=== PATIENT | female | born 1970 | race Caucasian/White ===

== ENCOUNTER 2017-08-02 12:05 | Emergency (ER) | payer MEDICAID ==
[2017-08-02 12:06] VITALS: BMI 43.4
[2017-08-02 12:09] VITALS: BP 141/94; PULSE 112; RESP 20; TEMP 98.7; O2SAT 98
--- NOTE | 2017-08-02 12:26 | C.PDOC ---
History Of Present Illness 47 year old female presents to Emergency Department for evaluation of intermittent suprapubic abdominal pain for the past 3 weeks. Patient reports being seen by her PCP, Dr. Faye, 2 weeks ago with similar complaints, was found to have bladder infection and was given unknown antibiotics. Patient states that she finished the course of her antibiotics and felt better for 2 days but the pain returned. Patient reports being seen by OBGYN on July 31, 2017 for similar complaints in addition to irregular vaginal bleeding for almost a month. Notes that vaginal bleeding was persistent for 1 week at that time which prompted her to visit her OBGYN. Patient was prescribed hormone medication, bleeding had resolved but she continues to feel pressure in the suprapubic region. Patient was told that her urine appeared to be cloudy at that time, no antibiotics were given. Patient has a Rx with her that states need medical clearance for D&C. Patient has copy of bloodwork including CBC, CMP, lipid and thyroid panel with normal results. Denies fever, flank pain, chills, nausea, or vomiting. 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 PCP: Dr Gypsy Faye Time Seen by Provider: 08/02/17 12:16 Chief Complaint (Nursing): Female Genitourinary History Per: Patient History/Exam Limitations: no limitations Onset/Duration Of Symptoms: Days Current Symptoms Are (Timing): Still Present Quality Of Discomfort: Pressure Recent travel outside of the [place]: No Additional History Per: Patient Past Medical History Reviewed: Historical Data, Nursing Documentation, Vital Signs Vital Signs: Last Vital Signs Temp 98.7 F 08/02/17 12:07 Pulse 112 H 08/02/17 12:07 Resp 20 08/02/17 12:07 BP 141/94 H 08/02/17 12:07 Pulse Ox 98 08/02/17 13:36 - Medical History PMH: Gastritis Surgical History: (x2) - [facility] Procedures ENDO EXCISION/DEST OF LESION OR TISSUE OF STOMACH (04/01/14) Family History: States: Unknown Family Hx - Social History Hx Tobacco Use: No Hx Alcohol Use: No Hx Substance Use: No - Immunization History Hx Tetanus Toxoid Vaccination: Yes Hx Influenza Vaccination: Yes Hx Pneumococcal Vaccination: No Review Of Systems Constitutional: Negative for: Fever, Chills Respiratory: Negative for: Cough, Shortness of Breath Gastrointestinal: Positive for: Abdominal Pain. Negative for: Nausea, Vomiting , Diarrhea Genitourinary: Positive for: Frequency. Negative for: Dysuria, Hematuria, Vaginal Discharge, Vaginal Bleeding Musculoskeletal: Negative for: Back Pain Neurological: Negative for: Headache Physical Exam - Physical Exam Appears: Non-toxic, No Acute Distress, Other (obese) Skin: Normal Color, Warm, Dry Head: Atraumatic, Normacephalic Eye(s): bilateral: Normal Inspection, EOMI Oral Mucosa: Moist Neck: Supple Cardiovascular: Rhythm Regular, No Murmur Respiratory: Normal Breath Sounds, No Rales, No Rhonchi, No Wheezing Gastrointestinal/Abdominal: Soft, Tenderness (mild suprapubic), No Distention, No Guarding, No Rebound Back: Normal Inspection, No CVA Tenderness Extremity: Normal ROM Neurological/Psych: Oriented x3, Normal Speech ED Course And Treatment O2 Sat by Pulse Oximetry: 98 Pulse Ox Interpretation: Normal Medical Decision Making Medical Decision Making: Plan: * Urinalysis * Pyridium UA shows LE, Blood, WBCs. Will treat with Cipro PO. Explained results to patient and give Rx for Cipro, pyridium and florastor. Patient advised to follow up with her PCP for further care and the medical clearance for the hysteroscopy Disposition Counseled Patient/Family Regarding: Diagnosis, Need For Followup, Rx Given - Disposition Referrals: Gypsy Faye MD [Medical Doctor] - Disposition: HOME/ ROUTINE Disposition Time: 13:35 Condition: STABLE Additional Instructions: Take antibiotic twice daily and be sure to finish taking all of antibiotic. Drink plenty of fluids. If urine culture was performed, call back for results in 2-3 days for results to confirm antibiotic is treating UTI well. You may call [facility] for any assistance [phone]. 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 - Scribe Statement The provider has reviewed the documentation as recorded by the Scribe Kripal Ramos All medical record entries made by the Bobby were at my direction and personally dictated by me. I have reviewed the chart and agree that the record accurately reflects my personal performance of the history, physical exam, medical decision making, and the department course for this patient. I have also personally directed, reviewed, and agree with the discharge instructions and disposition.
[2017-08-02 12:42] LABS: RBC URINE 47 /hpf (0-3); URINE BACTERIA RARE (<OCC); URINE BILIRUBIN NEGATIVE (NEGATIVE); URINE BLOOD 3+ (NEGATIVE); URINE COLOR Yellow (YELLOW); URINE GLUCOSE (UA) NORMAL (Normal); URINE KETONE NEGATIVE (NEGATIVE); URINE LEUKOCYTE ESTERASE 3+ Leu/uL (Negative); URINE PROTEIN NEGATIVE (NEGATIVE); URINE UROBILINOGEN NORMAL mg/dL (0.2-1.0); WBC URINE 15 /hpf (0-5)
== END 2017-08-02 14:12 | disposition home or self-care (01) ==
LOC: C.ER 12:05
DX: N39.0 Urinary tract infection, site not specified (principal)

== ENCOUNTER 2017-08-04 11:52 | Emergency (ER) | payer MEDICAID ==
[2017-08-04 11:57] VITALS: BMI 42.0
--- NOTE | 2017-08-04 12:07 | C.PDOC ---
History Of Present Illness 47 y/o female presents to ED for evaluation of shortness of breath since last night. Also complaints of mild headache. Pt was recently seen in ED on 08/02/17 for UTI, given Cipro, and states her UTI symptoms are improving. Denies chest pain, fever, or other complaints. Denies history of anxiety. Pt thinks that sob might be related to cipro. Time Seen by Provider: 08/04/17 12:01 Chief Complaint (Nursing): Shortness Of Breath History Per: Patient History/Exam Limitations: no limitations Onset/Duration Of Symptoms: Days Current Symptoms Are (Timing): Still Present Current Respiratory Medications: See Home Med List Associated Symptoms: denies: Fever, Chills, Sweating, Chest Pain, Bloody Cough, Productive Cough, Heart Racing, Leg/Calf Pain, Ankle/Leg Swelling, Dizziness, Light-headedness, Anxiety, Tingling In Hands Or Face, Musle Spasms In Hands Or Feet Reports Recently: Seen In ED Recent travel outside of the [place]: No Additional History Per: Patient Past Medical History Reviewed: Historical Data, Nursing Documentation, Vital Signs Vital Signs: Last Vital Signs Temp 98.1 F 08/04/17 17:08 Pulse 110 H 08/04/17 17:08 Resp 18 08/04/17 17:08 BP 146/92 H 08/04/17 17:08 Pulse Ox 99 08/04/17 17:26 - Medical History PMH: Gastritis Surgical History: (x2) - [facility] Procedures ENDO EXCISION/DEST OF LESION OR TISSUE OF STOMACH (04/01/14) Family History: States: Unknown Family Hx - Social History Hx Tobacco Use: No Hx Alcohol Use: No Hx Substance Use: No - Immunization History Hx Tetanus Toxoid Vaccination: Yes Hx Influenza Vaccination: Yes Hx Pneumococcal Vaccination: No Review Of Systems Except As Marked, All Systems Reviewed And Found Negative. Constitutional: Negative for: Fever, Chills Cardiovascular: Negative for: Chest Pain, Palpitations, Light Headedness Respiratory: Positive for: Shortness of Breath. Negative for: Cough Neurological: Positive for: Headache. Negative for: Weakness, Numbness, Dizziness Physical Exam - Physical Exam Appears: Non-toxic, No Acute Distress Skin: Normal Color, Warm, Dry Head: Atraumatic, Normacephalic Eye(s): bilateral: Normal Inspection Neck: Supple Chest: Symmetrical Cardiovascular: Rhythm Regular (tachycardic), No Murmur Respiratory: Normal Breath Sounds, No Rales, No Rhonchi, No Wheezing Gastrointestinal/Abdominal: Soft, No Tenderness Extremity: Normal ROM, No Pedal Edema Neurological/Psych: Oriented x3, Normal Speech ED Course And Treatment - Laboratory Results Result Diagrams: 08/04/17 12:21 08/04/17 12:21 ECG: Interpreted By Me, Viewed By Me ECG Rhythm: Sinus Tachycardia ECG Interpretation: No Acute Changes Rate From EC (bpm) O2 Sat by Pulse Oximetry: 99 Pulse Ox Interpretation: Normal - CT Scan/US CT CHEST ANGIO Other Rad Studies (CT/US): Read By Radiologist, Radiology Report Reviewed CT/US Interpretation: Accession No. : [id number]. Patient Name / ID : MARY VILLAREAL / [id number]. Exam Date : 08/04/2017 13:10:35 ( Approved ). Study Comment : Sex / Age : F / 47Y. Creator : Jamie Vega MD. Dictator : Jamie Vega MD. Welding Engineer : Apartment Maintenance Worker : Jamie Vega MD. Approver2 : Report Date : 08/04/2017 16:11:02. My Comment : . PROCEDURE: CT Chest with contrast (Pulmonary Angiogram). HISTORY: Shortness of breath. Chest pain. COMPARISON: None available. TECHNIQUE: Axial computed tomography images were obtained of the chest in the pulmonary arterial phase of enhancement. Coronal and sagittal reformatted images were created and reviewed. Intravenous contrast dose: 150 cc of Visipaque intravenous contrast. Radiation dose: Total exam DLP = 1122 mGy-cm. This CT exam was performed using one or more of the following dose reduction techniques: Automated exposure control, adjustment of the mA and/or kV according to patient size, and/ or use of iterative reconstruction technique. FINDINGS: PULMONARY ARTERIES: Unremarkable. No acute central pulmonary embolism. Question small filling defect within a subsegmental branch of the left upper lobe pulmonary artery on series 2, image 104 likely represents artifact. AORTA: No acute findings. No thoracic aortic aneurysm. LUNGS: Right lung: Minimal right apical pleural thickening with small ground-glass nodule at the right lung apex measuring 8 millimeters. Mild atelectasis within the right middle lobe anteriorly. Minimal right basilar atelectasis. Left lun millimeter subpleural nodule at the posterior aspect of the left upper lobe. Mild linear atelectasis within the inferior aspect of the left upper lobe and lingula. Mild left basilar atelectasis. PLEURAL SPACES: Unremarkable. No effusion or pneuomothorax. HEART: Unremarkable. No cardiomegaly. No significant pericardial effusion. LYMPH NODES: No lymphadenopathy. BONES, CHEST WALL: Unremarkable. No fracture or destructive lesion. OTHER FINDINGS: Mild fatty infiltration of the liver. Distention of the gallbladder. Prominent spleen. IMPRESSION: No evidence of acute pulmonary embolism. Additional findings as above. Progress Note: Blood work, UA, EKG, Angio chest CT scan ordered and reviewed. Pt was given Tylenol. Reassessment Condition: Improved Medical Decision Making Medical Decision Making: Pt's sob appear to come and go. Clinically likely due to anxiety. CT report discussed in details with pt, aware of lft elevation and lung nodules. Pt's UTI symptoms improved on cipro. Urine cx grew to many [place] and repeat cx was recommended. Repeat urine cx sent. Disposition Counseled Patient/Family Regarding: Studies Performed, Diagnosis, Need For Followup - Disposition Referrals: Gypsy Faye MD [Medical Doctor] - Disposition: HOME/ ROUTINE Disposition Time: 17:18 Condition: STABLE Additional Instructions: FOLLOW UP WITH PMD ON SUNDAY FOR RE-EVALUATION. ABNORMAL LIVER FUNCTION TESTS NOTED. ACUTE LIVER FUNCTION BLOOD TEST WAS ORDERED AND IS PENDING. LUNG NODULES SEEN ON CT SCAN WOULD NEED A REPEAT TEST IN SEVERAL MONTHS. IF SYMPTOMS GET WORSE OR ANY NEW CONCERNING SYMPTOMS DEVELOP RETURN TO ED. Instructions: Urinary Tract Infection in Women (ED), Pulmonary Nodules (ED) Forms: [facility] [employer] (Kyrgyz) - Clinical Impression Clinical Impression: Urinary tract infection, Elevated LFTs, Lung nodules, Shortness of breath, Tachycardia - PA / HOSPICE VOLUNTEER / Resident Statement MD/DO has reviewed & agrees with the documentation as recorded. - Scribe Statement The provider has reviewed the documentation as recorded by the Scaribsimeon Ramso All medical record entries made by the Bobby were at my direction and personally dictated by me. I have reviewed the chart and agree that the record accurately reflects my personal performance of the history, physical exam, medical decision making, and the department course for this patient. I have also personally directed, reviewed, and agree with the discharge instructions and disposition.
[2017-08-04 12:26] LABS: BASO % 0.4 % (0.0-2.0); EOS # 0.1 K/uL (0.0-0.7); EOS % 1.3 % (0.0-4.0); HEMATOCRIT 39.4 % (34.0-47.0); LYMPH # 1.3 K/uL (1.0-4.3); LYMPH % 20.8 % (20.0-40.0); MEAN CELL VOLUME 86.4 fL (81.0-99.0); MEAN CORPUSCULAR HGB CONC 33.5 g/dL (33.0-37.0); MEAN PLATELET VOLUME 8.9 fL (7.2-11.7); MONO # 0.8 K/uL (0.0-0.8); MONO % 13.6 % (0.0-10.0); RED CELL DISTRIBUTION WIDTH 13.6 % (11.5-14.5); WHITE BLOOD COUNT 6.2 K/uL (4.8-10.8)
[2017-08-04 12:31] VITALS: RESP 18
[2017-08-04 12:48] LABS: ALKALINE PHOSPHATASE 88 U/L (38-126); ALT/SGPT 434 U/L (9-52); AST/SGOT 196 U/L (14-36); BILIRUBIN,TOTAL 1.2 mg/dL (0.2-1.3); BLOOD UREA NITROGEN 5 mg/dL (7-17); CALCIUM 9.3 mg/dl (8.6-10.4); CARBON DIOXIDE 24 mmol/L (22-30); CHLORIDE 101 mmol/L (98-107); GFR AFRICAN-AMERICAN > 60; GLUCOSE,RANDOM 99 mg/dL (65-105); POTASSIUM 4.1 mmol/L (3.6-5.2); SODIUM 136 mmol/L (132-148); TOTAL PROTEIN 8.4 g/dL (6.3-8.3)
[2017-08-04] MEDS ORDERED: Iodixanol 320 mg/ml 150 ml Bottle IV ONE (13:05)
[2017-08-04] MEDS ORDERED: Iodixanol 320 MG/ML 100 ML BOTTLE IV ONE (14:12)
--- NOTE | 2017-08-04 16:12 | CT ---
PROCEDURE: CT Chest with contrast (Pulmonary Angiogram) HISTORY: Shortness of breath. Chest pain. COMPARISON: None available. TECHNIQUE: Axial computed tomography images were obtained of the chest in the pulmonary arterial phase of enhancement. Coronal and sagittal reformatted images were created and reviewed. Intravenous contrast dose: 150 cc of Visipaque intravenous contrast. Radiation dose: Total exam DLP = 1122 mGy-cm. This CT exam was performed using one or more of the following dose reduction techniques: Automated exposure control, adjustment of the mA and/or kV according to patient size, and/or use of iterative reconstruction technique. FINDINGS: PULMONARY ARTERIES: Unremarkable. No acute central pulmonary embolism. Question small filling defect within a subsegmental branch of the left upper lobe pulmonary artery on series 2, image 104 likely represents artifact. AORTA: No acute findings. No thoracic aortic aneurysm. LUNGS: Right lung: Minimal right apical pleural thickening with small ground-glass nodule at the right lung apex measuring 8 millimeters. Mild atelectasis within the right middle lobe anteriorly. Minimal right basilar atelectasis. Left lun millimeter subpleural nodule at the posterior aspect of the left upper lobe. Mild linear atelectasis within the inferior aspect of the left upper lobe and lingula. Mild left basilar atelectasis. PLEURAL SPACES: Unremarkable. No effusion or pneuomothorax. HEART: Unremarkable. No cardiomegaly. No significant pericardial effusion. LYMPH NODES: No lymphadenopathy. BONES, CHEST WALL: Unremarkable. No fracture or destructive lesion OTHER FINDINGS: Mild fatty infiltration of the liver. Distention of the gallbladder. Prominent spleen. IMPRESSION: No evidence of acute pulmonary embolism. Additional findings as above.
[2017-08-04 17:12] VITALS: BP 146/92; PULSE 110; TEMP 98.1
[2017-08-04 17:18] VITALS: O2SAT 99
--- NOTE | 2017-08-06 17:56 | CARD ---
APPROVED REPORT EKG Measurement Heart [id number] NV [id number] [id number] <Conclusion> Sinus tachycardia Otherwise normal ECG
== END 2017-08-04 17:39 | disposition home or self-care (01) ==
LOC: C.ER 11:52
DX: N39.0 Urinary tract infection, site not specified (principal); R00.0 Tachycardia, unspecified; R06.02 Shortness of breath; R91.8 Other nonspecific abnormal finding of lung field
CPT/HCPCS: 36415; 71275; 80053; 80074; 84484; 84703; 85025; 85378; 87086; 99285; Q9967

== ENCOUNTER 2017-08-12 08:20 | Emergency (ER) | payer MEDICAID ==
[2017-08-12 08:20] VITALS: BMI 42.0
[2017-08-12] MEDS ORDERED: Albuterol 0.083% Inhal Sol (2.5 mg/3 mL) UD IH STA (09:26)
[2017-08-12] MEDS ORDERED: Albuterol 0.083% Inhal Sol (2.5 mg/3 mL) UD ONE (09:49)
--- NOTE | 2017-08-12 11:46 | C.PDOC ---
History Of Present Illness 47 yr old female presents to the ER with complaints of SOB and cough for the past 4 days after drinking Barium for a CT scan with PO contrast. Patient has scheduled appointment with DR. Faye tomorrow. Patient was recently seen for similar symptoms in our ER, has full work up done including CTA chest. Patient denies fever/chills, chest pain, nausea, vomiting, abdominal pain, diarrhea, constipation. Time Seen by Provider: 08/12/17 09:03 Chief Complaint (Nursing): Cough, Cold, Congestion History Per: Patient History/Exam Limitations: no limitations Onset/Duration Of Symptoms: Days (4) Current Symptoms Are (Timing): Still Present Sick Contacts (Context): None Severity: Mild Past Medical History Reviewed: Historical Data, Nursing Documentation, Vital Signs Vital Signs: Last Vital Signs Temp 100.2 F H 08/12/17 13:36 Pulse 127 H 08/12/17 13:36 Resp 18 08/12/17 13:36 BP 160/100 H 08/12/17 13:36 Pulse Ox 96 08/12/17 13:36 - Medical History PMH: Gastritis Surgical History: (x2) - [facility] Procedures ENDO EXCISION/DEST OF LESION OR TISSUE OF STOMACH (04/01/14) Family History: States: No Known Family Hx - Social History Hx Tobacco Use: No Hx Alcohol Use: No Hx Substance Use: No - Immunization History Hx Tetanus Toxoid Vaccination: Yes Hx Influenza Vaccination: Yes Hx Pneumococcal Vaccination: No Review Of Systems Except As Marked, All Systems Reviewed And Found Negative. Constitutional: Negative for: Fever, Chills Cardiovascular: Negative for: Chest Pain, Palpitations Respiratory: Positive for: Cough, Shortness of Breath Gastrointestinal: Negative for: Nausea, Vomiting, Abdominal Pain, Diarrhea, Constipation Neurological: Negative for: Weakness, Numbness Physical Exam - Physical Exam Appears: Well, Non-toxic, Other ((+) Anxious appearing, speaking in full sentences) Skin: Normal Color, Warm, Dry, No Rash Head: Atraumatic, Normacephalic Oral Mucosa: Moist Throat: Normal, No Erythema, No Exudate, No Drooling Neck: Supple Cardiovascular: Rhythm Regular, Other (mildly tachycardic ) Respiratory: Normal Breath Sounds, No Rales, No Rhonchi, No Stridor, No Wheezing Gastrointestinal/Abdominal: Normal Exam, Bowel Sounds, Soft, No Tenderness, No Guarding, No Rebound Extremity: Normal ROM, No Calf Tenderness, No Swelling Neurological/Psych: Oriented x3 ED Course And Treatment O2 Sat by Pulse Oximetry: 98 (RA) Pulse Ox Interpretation: Normal - Radiology CXR: Interpreted by Me, Viewed By Me CXR Interpretation: Yes: No Acute Disease. No: Infiltrates - CT Scan/US CTA CHEST (PRIOR VISIT) Other Rad Studies (CT/US): Read By Radiologist, Radiology Report Reviewed CT/US Interpretation: Accession No. : [id number]. Patient Name / ID : MARY VILLAREAL / [id number]. Exam Date : 08/04/2017 13:10:35 ( Approved ). Study Comment : Sex / Age : F / 47Y. Creator : Jamie Vega MD. Dictator : Jamie Vega MD. Orientor : Fisher Purse Seine : Jamie Vega MD. Approver2 : Report Date : 08/04/2017 16:11:02. My Comment : . PROCEDURE: CT Chest with contrast (Pulmonary Angiogram). HISTORY: Shortness of breath. Chest pain. COMPARISON: None available. TECHNIQUE: Axial computed tomography images were obtained of the chest in the pulmonary arterial phase of enhancement. Coronal and sagittal reformatted images were created and reviewed. Intravenous contrast dose: 150 cc of Visipaque intravenous contrast. Radiation dose: Total exam DLP = 1122 mGy-cm. This CT exam was performed using one or more of the following dose reduction techniques: Automated exposure control, adjustment of the mA and/or kV according to patient size, and/ or use of iterative reconstruction technique. FINDINGS: PULMONARY ARTERIES: Unremarkable. No acute central pulmonary embolism. Question small filling defect within a subsegmental branch of the left upper lobe pulmonary artery on series 2, image 104 likely represents artifact. AORTA: No acute findings. No thoracic aortic aneurysm. LUNGS: Right lung: Minimal right apical pleural thickening with small ground-glass nodule at the right lung apex measuring 8 millimeters. Mild atelectasis within the right middle lobe anteriorly. Minimal right basilar atelectasis. Left lun millimeter subpleural nodule at the posterior aspect of the left upper lobe. Mild linear atelectasis within the inferior aspect of the left upper lobe and lingula. Mild left basilar atelectasis. PLEURAL SPACES: Unremarkable. No effusion or pneuomothorax. HEART: Unremarkable. No cardiomegaly. No significant pericardial effusion. LYMPH NODES: No lymphadenopathy. BONES, CHEST WALL: Unremarkable. No fracture or destructive lesion. OTHER FINDINGS: Mild fatty infiltration of the liver. Distention of the gallbladder. Prominent spleen. IMPRESSION: No evidence of acute pulmonary embolism. Additional findings as above. Progress Note: Prior visit reviewed. CXR ordered and reviewed. Patient given PO prednisone and albuterol neb for possible allergic reaction. On reassessment , continues to c/o same symptoms, anxious appearing. PO Xanax given. Reevaluation Time: 13:15 Reassessment Condition: Improved (On reassessment, patient is resting comfortably and states she feels better. ON exam, she has good air entry B/L without wheezing/rales/rhonchi or accessory muscle use. Pos 98% on RA. (+) mildly tachycardic. Recent blood work and CTA chest reviewed and WNL. Patient requesting medication for anxiety - Rx for xanax given. Patient instructed to follow up with Dr. Faye tomorrow as scheduled, and she understands she should return to ED if symptoms worsen.) Disposition Counseled Patient/Family Regarding: Studies Performed, Diagnosis, Need For Followup, Rx Given - Disposition Referrals: Gypsy Faye MD [Medical Doctor] - Disposition: HOME/ ROUTINE Disposition Time: 13:15 Condition: STABLE Additional Instructions: FOLLOW UP WITH DR FAYE TOMORROW SCHEDULED RETURN TO ER IF SYMPTOMS WORSEN Prescriptions: Albuterol HFA [Ventolin HFA 90 mcg/actuation (8 g)] 0.09 mg IH Q4 PRN #1 puff PRN Reason: Wheezing ALPRAZolam HALF TABLET [Xanax HALF TABLET] 0.125 mg PO TID PRN #10 tab PRN Reason: Anxiety Instructions: Anxiety (ED) Forms: [facility] (Lao), General Discharge Instructions Print Language: ITALIAN - POA Present On Arrival: None - Clinical Impression Clinical Impression: Shortness of breath, Evaluation by medical service required, Anxiety - Scribe Statement The provider has reviewed the documentation as recorded by the Scaribe Davina Pickett Provider Attestation: All medical record entries made by the Scaribsimeon were at my direction and personally dictated by me. I have reviewed the chart and agree that the record accurately reflects my personal performance of the history, physical exam, medical decision making, and the department course for this patient. I have also personally directed, reviewed, and agree with the discharge instructions and disposition.
[2017-08-12 13:37] VITALS: BP 160/100; PULSE 127; RESP 18; TEMP 100.2
--- NOTE | 2017-08-12 13:55 | RAD ---
HISTORY: SOB COMPARISON: No prior. TECHNIQUE: Chest PA and lateral FINDINGS: LUNGS: There appears to be some minimal linear atelectasis and or scarring left lung base. Lung jim are otherwise clear. PLEURA: No significant pleural effusion identified. No pneumothorax apparent. CARDIOVASCULAR: Normal. OSSEOUS STRUCTURES: Minor degenerative spondylosis of the cervical and thoracic spine. . VISUALIZED UPPER ABDOMEN: Normal. OTHER FINDINGS: None. IMPRESSION: No acute consolidation. Probable minimal linear atelectasis and or scarring left lung base.
[2017-08-16 15:30] VITALS: O2SAT 98
== END 2017-08-12 13:52 | disposition home or self-care (01) ==
LOC: C.ER 08:20
DX: R06.02 Shortness of breath (principal)

== ENCOUNTER 2017-10-04 06:55 | Emergency (ER) | payer MEDICAID ==
[2017-10-04 06:55] VITALS: BMI 42.0
[2017-10-04 07:48] LABS: SQUAMOUS EPITHIAL 32 /hpf (0-5); URINE BACTERIA OCC (<OCC); URINE BILIRUBIN NEGATIVE (NEGATIVE); URINE BLOOD NEGATIVE (NEGATIVE); URINE CLARITY Turbid (Clear); URINE COLOR Amber (YELLOW); URINE GLUCOSE (UA) NORMAL (Normal); URINE LEUKOCYTE ESTERASE 2+ Leu/uL (Negative); URINE NITRATE NEGATIVE (NEGATIVE); URINE PROTEIN 1+ mg/dL (NEGATIVE)
--- NOTE | 2017-10-04 08:15 | C.PDOC ---
History Of Present Illness 47 y/o female with hx endometriosis and abnormal pap smears, (hpv+) presents to ED for months of intermittent lower abdominal pain, sharp, that radiates to vagina. pt has seen her poultry husbandry teacher for this, who want to do a LEEP procedure for patient. pt has elevate liver enzymes and not has not consented to procedure due to concern for complications with anesthesia 2/2 elevated liver enzymes. pt not taking any analgesics due to elevated liver enzymes. no bm x 1 week. pt with decreased eating, sts having problems with reflux as well. Time Seen by Provider: 10/04/17 07:07 Chief Complaint (Nursing): Female Genitourinary Past Medical History Vital Signs: Last Vital Signs Temp 98 F 10/04/17 09:32 Pulse 85 10/04/17 09:32 Resp 18 10/04/17 09:32 BP 118/89 10/04/17 09:32 Pulse Ox 100 10/04/17 09:57 - Medical History PMH: Gastritis Surgical History: (x2) - [facility] Procedures ENDO EXCISION/DEST OF LESION OR TISSUE OF STOMACH (04/01/14) Family History: States: Unknown Family Hx - Social History Hx Tobacco Use: No Hx Alcohol Use: No Hx Substance Use: No - Immunization History Hx Tetanus Toxoid Vaccination: Yes Hx Influenza Vaccination: Yes Hx Pneumococcal Vaccination: No Physical Exam - Physical Exam Appears: Non-toxic, No Acute Distress Skin: Warm, Dry Head: Atraumatic, Normacephalic Eye(s): bilateral: Normal Inspection Neck: Supple Chest: No Deformity, No Tenderness Cardiovascular: Rhythm Regular, No Murmur Respiratory: Normal Breath Sounds, No Rales, No Rhonchi, No Wheezing Gastrointestinal/Abdominal: No Tenderness, No Distention, No Guarding, Other ( obese, low tranverse old surgical scar, mild lower abdominal tenderness) Pelvic: Normal Bimanual Exam (bilateral tenderness), No Vaginal Bleeding, Vaginal Discharge (yellow thick vaginal discharge), Cervical Motion Tenderness, No Cervix Open, Tender Uterus Extremity: Normal ROM, No Tenderness ED Course And Treatment O2 Sat by Pulse Oximetry: 100 Medical Decision Making Medical Decision Making: pt with low ab pain radiating to vagina, for months, due for leep. vaginal odor with discharge. no urinary symptoms. no bm x 1 week. pt with elevated lover enzymes and concerned about anesthesia for procedure; discussed with Dr Faye ; recommends GI for eval of liver issues. will tx pt for cervicitis in ED today. Disposition Discussed With : Evy Faye Counseled Patient/Family Regarding: Studies Performed, Diagnosis, Need For Followup, Rx Given - Disposition Referrals: Corin Lackey [Staff Provider] - Disposition: HOME/ ROUTINE Disposition Time: 09:52 Condition: STABLE Additional Instructions: Please follow up with Dr Lackey (pumping station engineer) for further evaluation of elevated liver enzymes and reflux and for medical clearance for anesthesia. . Bring most recent lab results with you to your visit. Drink increased fluids and increase fiber in diet. Take stool softener as prescribed. Continue taking omeprazole. Follow up with your poultry husbandry teacher soon. Prescriptions: Docusate Sodium [Colace] 100 mg PO BID #60 capsule Instructions: Cervicitis (ED), Constipation (ED), High Fiber Diet (ED) Forms: Gen Discharge Inst Venezuelan, [facility] (Venezuelan) Print Language: BAHRAINI - Clinical Impression Clinical Impression: Cervicitis, Constipation
[2017-10-04] MEDS ORDERED: cefTRIAXone (Rocephin) 250 mg Inj IM STA (08:52)
--- NOTE | 2017-10-04 09:01 | RAD ---
HISTORY: low ab pain, no bm x 1 week COMPARISON: No prior. FINDINGS: BOWEL: Stool retention. No obstruction. No free air. BONES: L4-5 and L5-S1 mild facet hypertrophy OTHER FINDINGS: None. IMPRESSION: Stool retention compatible with constipation. No mechanical bowel obstruction
[2017-10-04 09:32] VITALS: BP 118/89; PULSE 85; RESP 18; TEMP 98
[2017-10-04 09:45] VITALS: O2SAT 100
== END 2017-10-04 10:08 | disposition home or self-care (01) ==
LOC: C.ER 06:55
DX: N72 Inflammatory disease of cervix uteri (principal); K59.00 Constipation, unspecified
CPT/HCPCS: 74018; 81001; 87070; 87086; 87491; 87591; 96372; 99284; J0696; J1885

== ENCOUNTER 2018-01-10 10:11 | Emergency (ER) | payer MEDICAID ==
[2018-01-10 10:13] VITALS: BMI 42.0
[2018-01-10 12:01] LABS: BASO % 0.5 % (0.0-2.0); EOS # 0.3 K/uL (0.0-0.7); EOS % 4.2 % (0.0-4.0); HEMOGLOBIN 13.9 g/dL (11.0-16.0); LYMPH % 28.1 % (20.0-40.0); MEAN CORPUSCULAR HEMOGLOBIN 27.6 pg (27.0-31.0); MEAN CORPUSCULAR HGB CONC 33.3 g/dL (33.0-37.0); MEAN PLATELET VOLUME 8.9 fL (7.2-11.7); MONO # 0.9 K/uL (0.0-0.8); MONO % 12.6 % (0.0-10.0); NEUT # 3.9 K/uL (1.8-7.0); NEUT % 54.6 % (50.0-75.0); NRBC % 0.1 % (0.0-2.0); RBC 5.04 Mil/uL (3.80-5.20); RED CELL DISTRIBUTION WIDTH 18.3 % (11.5-14.5); WHITE BLOOD COUNT 7.1 K/uL (4.8-10.8)
[2018-01-10 12:03] LABS: MEAN CELL VOLUME 82.7 fL (81.0-99.0)
[2018-01-10 12:12] LABS: HCG,QUALITATIVE URINE NEGATIVE (NEGATIVE)
[2018-01-10 12:13] LABS: ALB/GLOB RATIO 1.1 (1.0-2.1); ALBUMIN 4.3 g/dL (3.5-5.0); ALT/SGPT 70 U/L (9-52); AST/SGOT 53 U/L (14-36); BLOOD UREA NITROGEN 12 mg/dL (7-17); CALCIUM 10.6 mg/dl (8.6-10.4); GFR AFRICAN-AMERICAN > 60; GFR NON-AFRICAN AMERICAN > 60
[2018-01-10 12:20] LABS: SQUAMOUS EPITHIAL 145 /hpf (0-5); URINE BACTERIA MOD (<OCC); URINE BILIRUBIN NEGATIVE (NEGATIVE); URINE BLOOD NEGATIVE (NEGATIVE); URINE CLARITY Hazy (Clear); URINE COLOR Yellow (YELLOW); URINE GLUCOSE (UA) NORMAL (Normal); URINE LEUKOCYTE ESTERASE 3+ Leu/uL (Negative); URINE PROTEIN NEGATIVE (NEGATIVE); URINE UROBILINOGEN NORMAL mg/dL (0.2-1.0)
--- NOTE | 2018-01-10 12:43 | C.PDOC ---
History Of Present Illness 47 y/o female presents to ED with c/o feeling depressed "for months". Pt notes she has trouble sleeping and notes feeling anxious. Not h/o psychiatric illness , or beign seen by psychiatrist. States stressors at home causing the depression. Notes she feels safe at home. Patient denies suicidal ideation, homicidal ideation or any physical complaints at this time. Time Seen by Provider: 01/10/18 10:43 Chief Complaint (Nursing): Psychiatric Evaluation History Per: Patient History/Exam Limitations: no limitations Onset/Duration Of Symptoms: Days Current Symptoms Are (Timing): Still Present Suicide/Self Injury Attempted (Context): None Associated Symptoms: Depression Past Medical History Reviewed: Historical Data, Nursing Documentation, Vital Signs Vital Signs: Last Vital Signs Temp 97.5 F L 01/10/18 13:26 Pulse 85 01/10/18 13:26 Resp 16 01/10/18 13:26 BP 118/80 01/10/18 13:26 Pulse Ox 99 01/10/18 13:26 - Medical History PMH: Anxiety, Depression, Gastritis Surgical History: (x2) - [facility] Procedures ENDO EXCISION/DEST OF LESION OR TISSUE OF STOMACH (04/01/14) Family History: States: No Known Family Hx - Social History Hx Tobacco Use: No Hx Alcohol Use: No Hx Substance Use: No - Immunization History Hx Tetanus Toxoid Vaccination: Yes Hx Influenza Vaccination: Yes Hx Pneumococcal Vaccination: No Review Of Systems Constitutional: Negative for: Fever, Chills Cardiovascular: Negative for: Chest Pain Respiratory: Negative for: Shortness of Breath Gastrointestinal: Negative for: Nausea, Vomiting Skin: Negative for: Rash Psych: Positive for: Depression. Negative for: Suicidal ideation, Withdrawal Physical Exam - Physical Exam Appears: Non-toxic, No Acute Distress, Other (Tearful) Skin: Warm, Dry, No Rash Head: Atraumatic, Normacephalic Eye(s): bilateral: Normal Inspection, EOMI Nose: Normal Neck: Normal ROM, Supple Chest: Symmetrical Cardiovascular: Rhythm Regular Respiratory: Normal Breath Sounds, No Rales, No Rhonchi, No Wheezing Gastrointestinal/Abdominal: Soft, No Tenderness, No Guarding, No Rebound Extremity: Normal ROM, Capillary Refill (<2 seconds) Neurological/Psych: Oriented x3, Normal Speech, Normal Cognition ED Course And Treatment - Laboratory Results Result Diagrams: 01/10/18 11:49 01/10/18 11:49 O2 Sat by Pulse Oximetry: 98 (RA) Pulse Ox Interpretation: Normal Progress Note: Drug screen ordered, Crisis eval. UA evaluated, Macrobid orderd. Pt denies back pain, fever, or dysuria. sample worker Albertina evaluated pt at bedside and discussed with Dr. Mobley said notes pt does not meet criteria for psych admission and is a safe discharge. Pt discharged with outpatient follow up and [facility] upon discharge. Instructed to return to ER if symptoms persist or worsen. Disposition - Disposition Referrals: [facility] [Outside] Disposition: HOME/ ROUTINE Disposition Time: 13:11 Condition: STABLE Additional Instructions: Follow up with [facility] after discharge. Return to ER if symptoms persist or worsen. Prescriptions: Nitrofurantoin Macrocrystals [Macrobid] 1 cap PO BID #14 cap Instructions: Depression, Adult (DC) Forms: [facility] (Tristanian) Print Language: ROMANIAN - Clinical Impression Clinical Impression: Depression, UTI (urinary tract infection) - PA / LEAD SHOP OPERATOR / Resident Statement MD/DO has reviewed & agrees with the documentation as recorded. - Scribe Statement The provider has reviewed the documentation as recorded by the Scaribsimeon Angeles All medical record entries made by the Bobby were at my direction and personally dictated by me. I have reviewed the chart and agree that the record accurately reflects my personal performance of the history, physical exam, medical decision making, and the department course for this patient. I have also personally directed, reviewed, and agree with the discharge instructions and disposition.
[2018-01-10 13:27] VITALS: BP 118/80; PULSE 85; RESP 16; TEMP 97.5
[2018-01-10 14:03] LABS: BARBITURATES, UR NEGATIVE (NEGATIVE); BENZODIAZEPINES, UR NEGATIVE (NEGATIVE); OPIATES, UR NEGATIVE (NEGATIVE); PHENCYCLIDINE, UR NEGATIVE (NEGATIVE)
[2018-01-10 15:39] VITALS: O2SAT 98
== END 2018-01-10 13:26 | disposition home or self-care (01) ==
LOC: C.ER 10:11
DX: F32.9 Major depressive disorder, single episode, unspecified (principal); N39.0 Urinary tract infection, site not specified

== ENCOUNTER 2018-07-14 10:48 | Emergency (ER) | payer MEDICAID ==
[2018-07-14 10:48] VITALS: BMI 42.0
[2018-07-14 11:00] VITALS: O2SAT 98
--- NOTE | 2018-07-14 11:27 | C.PDOC ---
Addendum entered and electronically signed by Beth Rodriguez PA-C 07/14/18 15:22: Addendum Addendum: Progress note: Labs reviewed and unremarkable. Obstructive series showed fecal retention. CT of abdomen ordered and reviewed. In the bowel: Stomach is distended with retained oral contrast material and food and otherwise appears unremarkable. No bowel obstruction. No prominent mural thickening throughout large or small bowel segments. Moderate retained fecal material seen the right hemicolon. No pericolic or perienteric reactive changes to suggest segmental colitis or enteritis. See Full report Patient remained afebrile, well and in no acute distress. I recommend fluids, laxative, colace, exercise an to follow up with PMD. Ordered golytely for patient to take at home Original Note: History Of Present Illness 47 year old female presents to ED for evaluation of right lower quadrant abdominal pain for the last 2 days. Pain is described as cramping and sharp in nature and states pain developed after taking over the counter magnesium citrate. Patient states she been constipated for 4 weeks. She was seen by PMD, Dr. Faye, who prescribed her Lactulose which she took without relief. Otherwise, denies fever, chills, nausea, vomiting, back pain, or urinary symptoms. Time Seen by Provider: 07/14/18 11:16 Chief Complaint (Nursing): Abdominal Pain History Per: Patient History/Exam Limitations: no limitations Onset/Duration Of Symptoms: Days Current Symptoms Are (Timing): Still Present Location Of Pain/Discomfort: RLQ Radiation Of Pain To:: None Quality Of Discomfort: Sharp, Cramping Associated Symptoms: Constipation. denies: Nausea, Vomiting, Loss Of Appetite, Back Pain, Chest Pain, Urinary Symptoms Exacerbating Factors: None Alleviating Factors: None Recent travel outside of the [place]: No Additional History Per: Patient Abnormal Vaginal Bleeding: No Past Medical History Reviewed: Historical Data, Nursing Documentation, Vital Signs Vital Signs: Last Vital Signs Temp 99.4 F 07/14/18 10:56 Pulse 98 H 07/14/18 10:56 Resp 20 07/14/18 10:56 BP 111/78 07/14/18 10:56 Pulse Ox 98 07/14/18 10:56 - Medical History PMH: Anxiety, Depression, Gastritis Surgical History: (x2) - [facility] Procedures ENDO EXCISION/DEST OF LESION OR TISSUE OF STOMACH (04/01/14) Family History: States: Unknown Family Hx - Social History Hx Tobacco Use: No Hx Alcohol Use: No Hx Substance Use: No - Immunization History Hx Tetanus Toxoid Vaccination: Yes Hx Influenza Vaccination: Yes Hx Pneumococcal Vaccination: No Review Of Systems Except As Marked, All Systems Reviewed And Found Negative. Constitutional: Negative for: Fever, Chills Gastrointestinal: Positive for: Abdominal Pain, Constipation. Negative for: Nausea, Vomiting, Diarrhea Genitourinary: Negative for: Dysuria, Frequency, Hematuria Musculoskeletal: Negative for: Back Pain Physical Exam - Physical Exam Appears: Non-toxic, No Acute Distress Skin: Normal Color, Warm, Dry Head: Atraumatic, Normacephalic Eye(s): bilateral: Normal Inspection Oral Mucosa: Moist Neck: Normal ROM, Supple Cardiovascular: Rhythm Regular, No Murmur Respiratory: Normal Breath Sounds, No Rales, No Rhonchi, No Wheezing Gastrointestinal/Abdominal: Soft, Tenderness (RLQ), No Guarding, No Rebound Back: No CVA Tenderness Extremity: Normal ROM Neurological/Psych: Oriented x3, Normal Speech ED Course And Treatment - Laboratory Results Result Diagrams: 07/14/18 11:33 07/14/18 11:33 O2 Sat by Pulse Oximetry: 98 (RA) Pulse Ox Interpretation: Normal Medical Decision Making Medical Decision Making: Impression: 47 year old female with RLQ abdominal pain for 2 days and constipation for 4 weeks. Plan: * Blood work * Urinalysis * Obstructive series Disposition Counseled Patient/Family Regarding: Diagnosis, Need For Followup, Rx Given - Disposition Referrals: Evy Faye MD [Staff Provider] - Disposition: HOME/ ROUTINE Disposition Time: 15:04 Condition: STABLE Additional Instructions: Take medications as needed for constipation. Follow up with your doctor. Prescriptions: Docusate [Colace] 100 mg PO TID PRN #30 cap PRN Reason: Constipation Polyethylene Glycol 3350 [Miralax] 17 gm PO DAILY #1 packet Instructions: Constipation, Adult (DC) Forms: [facility] (Vietnamese) - POA Present On Arrival: None - Clinical Impression Clinical Impression: Constipation - PA / MEAT MANAGER / Resident Statement MD/DO has reviewed & agrees with the documentation as recorded. - Scribe Statement The provider has reviewed the documentation as recorded by the Scribe KP All medical record entries made by the Scribe were at my direction and personally dictated by me. I have reviewed the chart and agree that the record accurately reflects my personal performance of the history, physical exam, medical decision making, and the department course for this patient. I have also personally directed, reviewed, and agree with the discharge instructions and disposition.
[2018-07-14 11:36] LABS: BASO % 0.7 % (0.0-2.0); EOS # 0.2 K/uL (0.0-0.7); EOS % 2.8 % (0.0-4.0); HEMOGLOBIN 12.2 g/dL (11.0-16.0); LYMPH # 1.9 K/uL (1.0-4.3); MEAN CELL VOLUME 81.4 fL (81.0-99.0); MEAN CORPUSCULAR HEMOGLOBIN 27.5 pg (27.0-31.0); MEAN CORPUSCULAR HGB CONC 33.7 g/dL (33.0-37.0); MEAN PLATELET VOLUME 8.8 fL (7.2-11.7); MONO # 0.7 K/uL (0.0-0.8); NEUT # 3.4 K/uL (1.8-7.0); NEUT % 54.5 % (50.0-75.0); NRBC % 0.1 % (0.0-2.0); RBC 4.44 Mil/uL (3.80-5.20); RED CELL DISTRIBUTION WIDTH 15.8 % (11.5-14.5); WHITE BLOOD COUNT 6.2 K/uL (4.8-10.8)
[2018-07-14 11:49] LABS: ALB/GLOB RATIO 1.4 (1.0-2.1); ALBUMIN 3.9 g/dL (3.5-5.0); ALT/SGPT 21 U/L (9-52); AST/SGOT 12 U/L (14-36); BLOOD UREA NITROGEN 11 mg/dL (7-17); CALCIUM 9.6 mg/dl (8.6-10.4); GFR NON-AFRICAN AMERICAN > 60
[2018-07-14 11:50] LABS: HCG,QUALITATIVE URINE NEGATIVE (NEGATIVE); SQUAMOUS EPITHIAL 10 /hpf (0-5); URINE BACTERIA RARE (<OCC); URINE BILIRUBIN NEGATIVE (NEGATIVE); URINE BLOOD NEGATIVE (NEGATIVE); URINE CLARITY Hazy (Clear); URINE COLOR Yellow (YELLOW); URINE GLUCOSE (UA) NORMAL (Normal); URINE LEUKOCYTE ESTERASE 2+ Leu/uL (Negative); URINE PROTEIN NEGATIVE (NEGATIVE); URINE UROBILINOGEN NORMAL mg/dL (0.2-1.0)
[2018-07-14] MEDS ORDERED: Iohexol 240 (50 ml) ONE (12:33)
[2018-07-14] MEDS ORDERED: Iodixanol 320 MG/ML 100 ML BOTTLE IV ONE (12:58)
--- NOTE | 2018-07-14 14:49 | CT ---
Date of service: 07/14/2018 PROCEDURE: CT Abdomen and Pelvis with contrast HISTORY: RLQ pain COMPARISON: None. TECHNIQUE: Following oral and intravenous contrast administration, a CT examination of the abdomen and pelvis performed from the domes of the diaphragms to the symphysis pubis with reformatted datasets provided not only axial but also sagittal and coronal series. Coronal and sagittal reformats were generated. Contrast dose: Visipaque 320, 100 cc Radiation dose: Total exam DLP = 768.13 mGy-cm. This CT exam was performed using one or more of the following dose reduction techniques: Automated exposure control, adjustment of the mA and/or kV according to patient size, and/or use of iterative reconstruction technique. FINDINGS: LOWER THORAX: Unremarkable. LIVER: Unremarkable. No gross lesion or ductal dilatation. GALLBLADDER AND BILE DUCTS: Gallbladder is distended however there is no pericholecystic fluid collection mural thickening or radiodense cholelithiasis associated. PANCREAS: Unremarkable. No gross lesion or ductal dilatation. SPLEEN: Unremarkable. ADRENALS: Unremarkable. No mass. KIDNEYS AND URETERS: There are a few small lucencies identified at the right kidney too small to characterize but likely reflecting cysts. No obstructive uropathy bilaterally. No perinephric reaction or obstructive uropathy bilaterally. VASCULATURE: Unremarkable. No aortic aneurysm. No aortic atherosclerotic calcification or mural plaque present. BOWEL: Stomach is distended with retained oral contrast material and food and otherwise appears unremarkable. No bowel obstruction. No prominent mural thickening throughout large or small bowel segments. Moderate retained fecal material seen the right hemicolon. No pericolic or perienteric reactive changes to suggest segmental colitis or enteritis. APPENDIX: Nonacute appendix appears small appendecolith is seen near the tip of the appendix. PERITONEUM: Unremarkable. No free fluid. No free air. LYMPH NODES: Unremarkable. No enlarged lymph nodes. BLADDER: Unremarkable. REPRODUCTIVE: Potential small right adnexal cyst 1.5 cm greatest dimension. Heterogeneous echotexture throughout the uterus may indicate small uterine fibroids. BONES: No acute fracture. OTHER FINDINGS: None. IMPRESSION: No definite acute abdominal or pelvic findings. A couple tiny lucency seen the right kidney too small to characterize but statistically likely representing cysts. Potential small right adnexal cyst 1.5 cm with heterogeneous uterine enhancement potentially reflective of fibroids.
[2018-07-14 15:18] VITALS: BP 97/70; PULSE 82; RESP 18; TEMP 98.7
[2018-07-14] MEDS ORDERED: Peg-Electrolyte Oral Soln 4L (Golytely) PO ONE (15:22)
--- NOTE | 2018-07-14 17:08 | RAD ---
Date of service: 07/14/2018 PROCEDURE: Radiographs of the chest and abdomen (obstructive series) HISTORY: constipation abd pain COMPARISON: No prior. TECHNIQUE: AP radiograph of the chest, with upright and supine radiographs of the abdomen. FINDINGS: CHEST: Lungs: Clear. Cardiovascular: Normal size heart. No pulmonary vascular congestion. Pleura: No pleural fluid. No pneumothorax. Other findings: None. ABDOMEN AND PELVIS: Bowel: Multiple air-fluid levels are identified at the right greater left konrad abdomen without prominent gaseous distention of large or small bowel loops. This may reflect limited ileus pattern if small bowel is involved. Clinically correlate further. Free air: None. Bones: Unremarkable. Other findings: None. IMPRESSION: No acute cardiopulmonary disease appreciable. Possible developing ileus pattern. Bowel obstruction is not favored. CT may required for follow-up if clinically warranted.
== END 2018-07-14 15:41 | disposition home or self-care (01) ==
LOC: C.ER 10:48
DX: K59.00 Constipation, unspecified (principal)
CPT/HCPCS: 74022; 74177; 80053; 81001; 84703; 85025; 99285; Q9967